=== PATIENT | male | born 1980 | race Caucasian/White ===

== ENCOUNTER 2017-03-26 20:38 | Emergency (ER) | payer MEDICAID ==
[2017-03-26 23:53] LABS: % BASOPHILS 0.3 % (0.0-2.0); % EOSINOPHILS 1.8 % (0.0-5.0); % LYMPHOCYTES 27.2 % (20.0-50.0); % MONOCYTES 7.7 % (2.0-10.0); EOSINOPHILE ABSOLUTE 0.2 Th/cmm (0.1-0.4); HEMATOCRIT 43.1 % (41.0-60); HEMOGLOBIN 14.6 gm/dL (12-16); LYMPHOCYTE ABSOLUTE 2.7 Th/cmm (1.5-3.0); MEAN CELL VOLUME 86.4 fl (80-99); MEAN CORPUSCULAR HEMOGLOBIN 29.3 pg (26.0-30.0); MEAN CORPUSCULAR HGB CONC 33.8 pg (28.0-36.0); MEAN PLATELET VOLUME 7.5 fl; MONOCYTE ABSOLUTE 0.8 Th/cmm (0.3-1.0); NEUTROPHILE ABSOLUTE 6.3 Th/cmm (1.8-8.0); PLATELET COUNT 286 Th/cmm (150-400); RED BLOOD COUNT 4.98 Mil/cmm (4.30-5.70); RED CELL DISTRIBUTION WIDTH 12.1 % (11.5-20.0)
--- NOTE | 2017-03-26 23:59 | ED Physician Chart ---
ED Chief Complaint/HPI - Patient Information Date Seen:: 03/26/17 Time Seen:: 21:15 Chief Complaint:: Chest pain History of Present Illness:: 36 yo male with a history of GERD, presented with sharp mid chest and epigastric ache 30 minutes ago. The ache was persisting until now. He denied any SOB or chest pressure. The patient stated that the ache happened before and it may be related to his GERD. Allergies:: Allergies Allergy/AdvReac Type Severity Reaction Status Date / Time No Known Allergies Allergy Verified 03/26/17 20:54 Vitals:: Vital Signs - 8 hr 03/26/17 20:40 Temp 97.2 F HR 78 RR 18 BP 137/78 O2 Sat % 100 ED Review of Systems - Review of Systems General/Constitutional: No fever, No chills Skin: No skin lesions Head: No headache Eyes: No loss of vision ENT: No nasal drainage Neck: No neck pain Cardio Vascular: Chest pain, No palpitations Pulmonary: No SOB GI: No nausea, No vomiting Musculoskeletal: No bone or joint pain ED Past Medical History - Past Medical History Past Medical History: PUD/GERD Family Medical History - Family Member Mother History Unknown: Yes ED Physical Exam - Physical Examination General/Constitutional: Awake, Alert Head: Atraumatic Eyes: PERRL, EOMI Skin: No skin lesions ENMT: Nasal exam nl Neck: No nuchal rigidity Respiratory: Clear to Auscultation, No Wheeze/Rhonchi/Rales Cardio Vascular: RRR, No murmur, gallop, rubs, NL S1 S2 GI: No tenderness/rebounding/guarding Extremities: normal strength in all extremities Neuro/Psych: No focal deficits ED Labs/Radiology/EKG Results - Lab Results Results: Laboratory Tests 03/26/17 23:40 WBC 10.0 RBC 4.98 Hgb 14.6 Hct 43.1 MCV 86.4 MCH 29.3 MCHC Differential 33.8 RDW 12.1 Plt Count 286 MPV 7.5 Neutrophils % 63.0 Lymphocytes % 27.2 Monocytes % 7.7 Eosinophils % 1.8 Basophils % 0.3 - Radiology Results Results: CXR: normal - EKG Interpretations Rate & Rhythm: Sinus rhythm ED Assessment - Assessment General Assessment: Chest discomfort secondary to GERD Assessment/Comments:: Rule out cardiac source CBC, CMP Trop I, BNP (normal) CXR, EKG Pantoprazole 40mg IV Pantoprazole 40mg PO D/c home F/u PCP and GI for further evaluation and management of GERD ED Septic Shock - . Is Septic Shock (SBP<90, OR Lactate>4 mmol\L) present?: No - <6hrs of presentation: Vital Signs: Vital Signs - 8 hr 03/26/17 20:40 Temp 97.2 F HR 78 RR 18 BP 137/78 O2 Sat % 100 ED Reassessment (Disposition) - Reassessment Reassessment Condition:: Improved - Patient Disposition Discharge/Transfer:: Home ED Discharge Plan - Patient Disposition Admit/Discharge/Transfer: PT DISCHARGED HOME Condition at Disposition: Improved Instructions: Diet for Gastroesophageal Reflux Disease, Adult, Gastroesophageal Reflux Disease, Adult Additional Instructions: FOLLOW UP WITH YOUR REGULAR DOCTOR THIS WEEK IF NOT FEELING ANY BETTER.
[2017-03-27] MEDS ORDERED: Pantoprazole 40 mg EC Tab PO ONE (00:01)
[2017-03-27] MEDS ORDERED: Pantoprazole 40 mg EC Tab PO STA (00:01)
[2017-03-27 00:09] LABS: ALB/GLOB RATIO 1.6 (1.0-1.8); ALBUMIN 4.2 gm/dL (4.2-5.5); ALKALINE PHOSPHATASE 72 U/L (34-104); ANION GAP 7.9 (7.0-16.0); BILIRUBIN,TOTAL 0.6 mg/dL (0.3-1.0); BUN - UREA NITROGEN 25 mg/dL (7-25); CALCIUM SERUM 9.2 mg/dL (8.6-10.3); CHLORIDE 108 mEq/L (98-107); CREATININE - SERUM 1.1 mg/dL (0.7-1.3); GFR AFRICAN-AMERICAN > 60.0 ml/min (>90); GFR NON AFRICAN-AMERICAN > 60.0 ml/min; GLUCOSE 99 mg/dL (70-105); POTASSIUM SERUM 3.9 mEq/L (3.5-5.1); SGOT 19 U/L (13-39); SGPT/ALT 20 U/L (7-52); SODIUM SERUM 138 mEq/L (136-145); TOTAL PROTEIN,SERUM 6.9 gm/dL (6.0-8.3)
[2017-03-27 00:26] LABS: CHOLESTEROL 154 mg/dL (<200); HDL -HIGH DENSITY LIPOPROTEIN 55 mg/dL (23-92); TRIGLYCERIDES 76 mg/dL (<150)
--- NOTE | 2017-03-27 08:15 | Diagnostic Imaging Report ---
Portable chest x-ray Time: 0051 hours History: Chest pain Allowing for portable technique the heart size is normal. No focal pulmonary parenchymal processes. No hilar or mediastinal abnormalities. Impression: No acute abnormalities.
== END 2017-03-27 01:25 | disposition home or self-care (01) ==
LOC: ER 20:38
DX: K21.9 Gastro-esophageal reflux disease without esophagitis (principal)
CPT/HCPCS: 36415-UA; 71010-TC; 80053-TC; 80061-TC; 83880-TC; 84484-TC; 85025-TC; 93005; Z7610